=== PATIENT | female | born 2000 | race Caucasian/White ===

== ENCOUNTER 2022-12-22 14:09 | Emergency (ER) | payer MEDICAID ==
[~2022-12-22] VITALS: Ht 154.9 cm; Wt 54.5 kg
[2022-12-22 14:17] VITALS: BP 138/89
[2022-12-22] MEDS ORDERED: AMOX-117 PO (15:45)
== END 2022-12-22 16:00 | disposition home or self-care (01) ==
LOC: ER 14:10
DX: H66.93 Otitis media, unspecified, bilateral (principal)
CPT/HCPCS: 99283

== ENCOUNTER 2024-09-22 16:53 | Emergency (ER) | payer MEDICAID ==
[~2024-09-22] VITALS: Ht 154.9 cm; Wt 60.0 kg
[2024-09-22 17:43] VITALS: BP 129/79; PULSE 101; RESP 18; TEMP 98.8; O2SAT 97
[2024-09-22] MEDS ORDERED: IBUP-862 PO (18:55)
[2024-09-22] MEDS ORDERED: CLIN-97 PO (18:55)
[2024-09-22] MEDS: sulfamethoxazole/trimethoprim DS (800/160mg) tablet PO ONE (19:11)
[2024-09-22] MEDS: CefTRIAXone 1000mg IM Kit (w/lidocaine diluent) IM ONE (19:12)
== END 2024-09-22 19:20 | disposition home or self-care (01) ==
LOC: ER 16:54
DX: N61.0 Mastitis without abscess (principal)
CPT/HCPCS: 71045; 96372; 99283; J0696